=== PATIENT | male | born 1965 | race Caucasian/White ===

== ENCOUNTER → 2020-03-18 10:49 | Outpatient (CLI) | payer OTHER, SELFPAY ==
[2020-03-18 11:36] LABS: Add Manual Diff / Slide Review NO; Basophils Absolute Auto 100 /uL (0-100); Basophils Percent Auto 0.9 % (0-2); Eosinophils Absolute Auto 200 /uL (0-450); Hematocrit 46.6 % (41-53); Hemoglobin 16.3 g/dL (13.5-17.5); Lymphocytes Absolute Auto 2000 /uL (1100-4500); Lymphocytes Percent Auto 36.4 % (25-40); Mean Corpuscular HGB Conc 34.9 % (30-36); Mean Corpuscular Hemoglobin 32.4 PG (26-34); Mean Corpuscular Volume 92.8 fL (80-100); Monocytes Absolute Auto 600 /uL (0-900); Monocytes Percent Auto 10.3 % (3-14); Neutrophils Absolute Auto 2700 /uL (1500-7000); Neutrophils Percent Auto 49.4 % (50-75); Platelet Count 172 X10^3/uL (150-400); Red Blood Cell Count 5.02 X10^6/uL (4.5-5.9); White Blood Cell Count 5.4 X10^3/uL (4.5-11.0)
[2020-03-18 11:56] LABS: Alanine Aminotransferase 57 IU/L (<50); Albumin 4.4 g/dL (3.5-5.0); Albumin Globulin Ratio 1.3 (1.0-2.8); Alkaline Phosphatase 69 U/L (38-126); Aspartate Aminotransferase 40 IU/L (17-59); BUN Creatinine Ratio 21.9 (6-22); Bilirubin Total 0.5 mg/dL (0.2-1.3); Blood Urea Nitrogen 16 mg/dL (9-20); C-Reactive Protein Quant 0.5 mg/dL (<1.0); Calcium 9.1 mg/dL (8.4-10.2); Carbon Dioxide 28 mmol/L (22-32); Chloride 107 mmol/L (98-107); Estimated Glomerular Filt Rate > 60.0 mL/min (>60); Globulin 3.4 g/dL (1.7-4.1); Glucose 106 mg/dL (70-100); HEMOLYSIS < 15 (0-50); Potassium 4.3 mmol/L (3.4-5.1); Sodium 141 mmol/L (137-145); Total Protein 7.8 g/dL (6.3-8.2)
[2020-03-18 12:04] LABS: Erythrocyte Sedimentation Rate 1 MM/HR (0-15)
== END ==
PROVIDERS: PCP Internal Medicine; Referring Provider Internal Medicine; Visit Provider Internal Medicine
DX: R10.11 Right upper quadrant pain (principal)
CPT/HCPCS: 36415; 80053; 85025; 85651; 86140

== ENCOUNTER → 2020-09-17 15:53 | Outpatient (CLI) | payer OTHER, SELFPAY ==
--- NOTE | 2020-09-17 15:55 | DI.RAD.S_ITS ---
PROCEDURE: XR LUMBAR SPINE 2-3V INDICATIONS: back pain TECHNIQUE: 5 views of the lumbar spine were acquired. COMPARISON: None. FINDINGS: Bones: 5 [id number] vertebrae are present. Trace dextrocurvature centered at the L3 level. Trace multilevel retrolisthesis. Multilevel disc degeneration, most notably and moderate to severe at the L5-S1 level. Moderate L4-L5 and L5-S1 facet joint arthropathy. Bilateral hip arthroplasties incompletely visualized.. No vertebral body compression fractures. No suspicious bony lesions. Soft tissues: Overlying bowel gas pattern is normal. No suspicious soft tissue calcifications. IMPRESSION: Multilevel spondylosis. Dictated by: Roland Brunson RR Interpreted: Vincenzo Liu MD on 09/17/2020 at 16:40 Transcribed by: FRANCESCO on 09/17/2020 at 16:41 Approved by: Vincenzo Liu M.D. on 09/18/2020 at 17:11
[2020-09-17 16:29] LABS: Add Manual Diff / Slide Review NO; Basophils Absolute Auto 100 /uL (0-100); Basophils Percent Auto 0.7 % (0-2); Eosinophils Absolute Auto 200 /uL (0-450); Eosinophils Percent Auto 2.5 % (2-4); Hematocrit 45.8 % (41-53); Hemoglobin 16.1 g/dL (13.5-17.5); Lymphocytes Absolute Auto 2000 /uL (1100-4500); Lymphocytes Percent Auto 28.3 % (25-40); Mean Corpuscular Hemoglobin 32.9 PG (26-34); Mean Corpuscular Volume 93.8 fL (80-100); Monocytes Absolute Auto 800 /uL (0-900); Monocytes Percent Auto 10.5 % (3-14); Neutrophils Absolute Auto 4200 /uL (1500-7000); Platelet Count 168 X10^3/uL (150-400); Red Blood Cell Count 4.89 X10^6/uL (4.5-5.9); Red Cell Distribution Width 12.7 % (11.6-14.8); White Blood Cell Count 7.2 X10^3/uL (4.5-11.0)
[2020-09-17 16:44] LABS: Alanine Aminotransferase 56 IU/L (<50); Albumin 4.4 g/dL (3.5-5.0); Albumin Globulin Ratio 1.4 (1.0-2.8); Alkaline Phosphatase 66 U/L (38-126); Aspartate Aminotransferase 40 IU/L (17-59); BUN Creatinine Ratio 17.3 (6-22); Bilirubin Total 0.5 mg/dL (0.2-1.3); Blood Urea Nitrogen 18 mg/dL (9-20); C-Reactive Protein Quant 0.5 mg/dL (<1.0); Calcium 9.9 mg/dL (8.4-10.2); Carbon Dioxide 25 mmol/L (22-32); Chloride 109 mmol/L (98-107); Estimated Glomerular Filt Rate > 60.0 mL/min (>60); Globulin 3.1 g/dL (1.7-4.1); Glucose 99 mg/dL (70-100); HEMOLYSIS < 15 (0-50); Potassium 4.4 mmol/L (3.4-5.1); Sodium 141 mmol/L (137-145); Total Protein 7.5 g/dL (6.3-8.2)
[2020-09-17 17:12] LABS: TSH w/ Reflex to FT4 1.16 uIU/mL (0.47-4.68)
[2020-09-17 17:29] LABS: Erythrocyte Sedimentation Rate 1 MM/HR (0-15)
== END ==
PROVIDERS: PCP Internal Medicine; Referring Provider Internal Medicine; Visit Provider Internal Medicine
DX: G89.29 Other chronic pain (principal); I10 Essential (primary) hypertension; M54.9 Dorsalgia, unspecified; R10.9 Unspecified abdominal pain
CPT/HCPCS: 36415; 72100; 80053; 84443; 85025; 85651; 86140

== ENCOUNTER → 2020-09-23 10:23 | Outpatient (CLI) | payer OTHER, SELFPAY ==
--- NOTE | 2020-09-23 10:25 | DI.CT.S_ITS ---
PROCEDURE: CT ABDOMEN PELVIS W CON INDICATIONS: abdominal pain TECHNIQUE: After the administration of oral and intravenous contrast, axial sections were acquired from the lung bases to the pubic symphysis. Coronal and sagittal reformats were performed. For radiation dose reduction, the following was used: automated exposure control, adjustment of mA and/or kV according to patient size. COMPARISON:None. FINDINGS: Image quality: Excellent. Lung bases: Unremarkable. Heart: No significant findings. ABDOMEN: Liver: At least moderate diffuse hepatic steatosis. No focal liver mass Gallbladder: Unremarkable. Biliary ducts: Unremarkable. Pancreas: Unremarkable. Spleen: Unremarkable. Adrenal Glands: Unremarkable. Kidneys and Ureters: A focal wedge-shaped area of cortical loss in the upper pole of the left kidney is consistent with remote insult, possibly an old focal infarct. Kidneys are otherwise unremarkable. Normal enhancement, no stones, no hydronephrosis. Stomach and Bowel: Mild sigmoid diverticulosis. Otherwise unremarkable. Peritoneal cavity: No free air, free fluid, or abscess cavity. No retroperitoneal adenopathy. PELVIS: Pelvic Organs: Unremarkable. Bladder: Mild diffuse bladder wall thickening, enlarged prostate. Pelvic Nodes: No enlarged lymph nodes. Miscellaneous: No inguinal hernias are seen. Bones: Bilateral total hip arthroplasties. Lumbar degenerative change. IMPRESSION: 1. Diffuse hepatic steatosis. 2. No evidence acute abdominal process. Dictated by: Jossue Gillespie M.D. on 09/23/2020 at 12:12 Approved by: Jossue Gillespie M.D. on 09/23/2020 at 12:17
== END ==
PROVIDERS: PCP Internal Medicine; Referring Provider Internal Medicine; Visit Provider Internal Medicine
DX: R10.9 Unspecified abdominal pain (principal); K76.0 Fatty (change of) liver, not elsewhere classified
CPT/HCPCS: 74177; Q9967

== ENCOUNTER 2020-10-29 09:45 | Outpatient (RCR) | payer OTHER, SELFPAY ==
--- NOTE | 2020-10-14 12:29 | PT.OIE ---
Current Diagnoses Other chronic pain (10/14/20) Low back pain (10/14/20) Past Medical History (Last Reviewed 10/07/20 @ 13:35 by Valerio Hardin MD) Acne (~1979) Chronic back pain (~1999) Essential hypertension Fatty liver Fistula (~2005) H/O basal cell carcinoma excision (~2006) History of pulmonary embolism (~2014) History of rectal surgery Insomnia Plantar warts (~1975) Pulmonary embolism (~2014) Rosacea (~1981) S/P bilateral hip replacements (~2014) S/P excision of ganglion cyst (~2009) Sleep apnea in adult Wears glasses Past Surgical History (Last Reviewed 10/07/20 @ 13:35 by Valerio Hardin MD) Anesthesia H/O basal cell carcinoma excision (~2006) History of rectal surgery S/P bilateral hip replacements (~2014) S/P excision of ganglion cyst (~2009) Visit Care Team Role Provider Type Chris Gaxiola MD Attending Provider Physician Family Provider Primary Care Provider Referring Provider Specialty: Internal Medicine Address: [address] [place] [address], [address], [facility] Email: [email or web address] Physical Therapy Initial Evaluation PT-OP-A Visit Information Start: 10/14/20 12:07 Freq: Status: Active Protocol: Document 10/14/20 12:07 (Rec: 10/14/20 12:29 [email or web address]) Out-Patient Physical Therapy Visit Information Visit Information Visit Type Initial Evaluation Visit Start Time 11:15 Visit Stop Time 12:00 Total Visit Minutes 45 Visit Number Number of EMBEDDED SYSTEMS SOFTWARE ENGINEER Visits 0 Evaluation Information Evaluation Date 10/14/20 Precautions Precautions B NEYDA 2014 told him he cannot run to preserve longevity of prostheses. PT-OP-B Current Condition Start: 10/14/20 12:07 Freq: Status: Active Protocol: Document 10/14/20 12:07 (Rec: 10/14/20 12:29 [email or web address]) Current Condition History of Current Condition Onset Date 15 years ago Current Complaints chronic LBP, difficulty in standing History of Current Condition Antwan is a 55 yo male here for his chronic LBP for over 15 years. His pain located primarily at upper lumbar region and it radiates to the side. His major c/o is stiffness in the morning, and pain after standing for hours for his job working at the [employer] 2-3 days/ week ( 8 hours shift). He also notices lifting and arching his back make it worse as well. Walking , sitting and bending over does not bother him. Pt had B NEYDA in 2014 with good recovery but told him he cannot run to preserve longevity of prostheses. Prior Treatments and Tests X-ray at lumbar spine 09/17 ) IMPRESSION: Multilevel spondylosis Treatment Goals Patient/Caregiver Goals 1. to learn a HEP for pain management. PT-OP-C Subjective Start: 10/14/20 12:07 Freq: Status: Active Protocol: Document 10/14/20 12:07 (Rec: 10/14/20 12:29 [email or web address]) Patient Questionnaires Oswestry Low Back Index Oswestry Score 10 Oswestry Impairment 1 to 19% Impaired (Score 1-19) OP-PT Pain Assessment Location LBP Pain Location Details L1-L2 Intensity 4 Scale Used Numeric (0 - 10) Description Aching,Pressure Frequency Frequent Pain Aggravating Factors Position,ADL's,Activity, Standing,Lifting Pain Alleviating Factors Inactivity,Lying Supine, Position,Sitting PT-OP-F Manual Assessment Start: 10/14/20 12:07 Freq: Status: Active Protocol: Document 10/14/20 12:07 (Rec: 10/14/20 12:29 [email or web address]) Manual Assessments Soft Tissue Assessment Soft Tissue Mobility Assessment hypertonicity at B hip flexors R>L and lumbar paraspinals PT-OP-H Neuro Start: 10/14/20 12:07 Freq: Status: Active Protocol: Document 10/14/20 12:07 HH (Rec: 10/14/20 12:29 [email or web address]) Sensation Evaluation Gross Sensation Gross Sensation WNL Deep Tendon Reflex & Clonus Assessment Deep Tendon Reflex Bilateral Achilles Deep Tendon Reflex 2+ Normal Bilateral Patellar Deep Tendon Reflex 0 Absent PT-OP-J Posture/Palpation/Skin Start: 10/14/20 12:07 Freq: Status: Active Protocol: Document 10/14/20 12:07 HH (Rec: 10/14/20 12:29 [email or web address]) Posture Evaluation Position Standing Pelvis Posture Anteriorly Tilted Hip Posture (L) Externally Rotated,(R) Externally Rotated PT-OP-K Range of Motion Start: 10/14/20 12:07 Freq: Status: Active Protocol: Document 10/14/20 12:07 (Rec: 10/14/20 12:29 [email or web address]) Lumbar Spine Range of Motion Lumbar Spine Active Degrees Comments toe touch test= 4 inches from floor lateral flexion to L/R= 23 inches from floor , angulationg at L1-l2 extension= up to neutral only. angulation at L1-L2 with significant pain and pressure at L1L2 PT-OP-L Special Tests Start: 10/14/20 12:07 Freq: Status: Active Protocol: Document 10/14/20 12:07 (Rec: 10/14/20 12:29 [email or web address]) Special Tests Lumbar Spine Special Tests Zacarias Test Results +VE R>L Comments hip flexor tightness R>L Straight Leg Raise Test Results -ve Comments up to 80 degrees Slump Test Results -ve Prone Instability Test Test Results +VE Vertical Spine Loading Test Results +VE Comments pain decreased with PPT PT-OP-M Strength Start: 10/14/20 12:07 Freq: Status: Active Protocol: Document 10/14/20 12:07 (Rec: 10/14/20 12:29 [email or web address]) Hip Strength Hip Manual Muscle Testing Right Flexion (L2) 4+ Good+ Extension (S1) 4+ Good+ Abduction 4+ Good+ Adduction 4+ Good+ Left Flexion (L2) 4+ Good+ Extension (S1) 4+ Good+ Abduction 4+ Good+ Adduction 4+ Good+ Knee Strength Knee Manual Muscle Testing Right Flexion (S2) 5 Normal Extension (L3) 5 Normal Left Flexion (S2) 5 Normal Extension (L3) 5 Normal Ankle/Foot Strength Ankle and Foot Manual Muscle Testing Right Dorsiflexion (L4) 5 Normal Plantarflexion (S1) 5 Normal Left Dorsiflexion (L4) 5 Normal Plantarflexion (S1) 5 Normal Toe Strength Toe Manual Muscle Testing Right Great Toe Flexion 5 Normal Extension 5 Normal Left Great Toe Flexion 5 Normal Extension 5 Normal PT-OP-Q Treatments Start: 10/14/20 12:07 Freq: Status: Active Protocol: Document 10/14/20 12:07 (Rec: 10/14/20 12:29 [email or web address]) Therapeutic Exercises Sitting Exercises trunk flexion Comments for /HEP, stretching in AM and before sleep Standing Exercises PPT Comments for hep PT-OP-T Assessment and Plan Start: 10/14/20 12:07 Freq: Status: Active Protocol: Document 10/14/20 12:07 (Rec: 10/14/20 12:29 [email or web address]) Physical Therapy Assessment Rehab Potential Rehabilitation Potential Excellent Evaluation Complexity Number of Personal Factors/Comorbidities 1-2 Number of Body Systems Impaired 1-2 Clinical Presentation at Evaluation Stable Impairments Impairments Activity Tolerance,Functional Activities,Functional Mobility ,Gait,Pain,Posture,ROM,Soft Tissue Mobility,Strength, Transfers Goals HEP Impairment pt does not ahve HEP Short Term Goal (STG) pt will be compliant to his daily HEP to improve his postural awareness and core stability STG Duration 4weeks prone instability Impairment pain in prone instability test Short Term Goal (STG) pt will show improved hip flexor flexibility and spinal stability therefore he has no discomfort during prone instability test STG Duration 3 weeks Fdc Goal (LTG) pt will show good understanding to be able engage posterior pelvic tilt without cueing in standing position for pain management LTG Duration 6 weeks activity tolerance Impairment pain 4/10 to stand >1 hour Short Term Goal (STG) pt will improve his postural awareness and core stability to be able to stand >1 hours with pain no more than 2/10 STG Duration 3 weeks Fdc Goal (LTG) pt will improve his postural awareness and core stability to be able to stand >2 hours without pain LTG Duration 6 weeks Assessment Summary Assessment Antwan is a 55yo male here for his chronic LBP >15years. PMH includes B NEYDA 2014. Upon assessment, pt presents signs of lumbar spine OA and hypermobile L1-L2 region. Postive for prone instability and vertical spine loading test. He presents significant anterior pelvic tilt in WB position which mechanically increase spinal stress in extension / WB positions. Pt will benefit from skilled therapy to improve his lumbar spine and core stability and postural awareness therefore he can tolerate standing activities without discomfort. Physical Therapy Plan Frequency and Duration Frequency of Treatment 1-2/ wk Duration of Treatment 6 weeks Plan of Care Start Date 10/14/20 Plan of Care End Date 11/28/20 Therapeutic Interventions Therapeutic Interventions Aquatic Therapy,Balance Training,Gait Training,Home Exercise Program,Joint Mobilizations,Manual Therapy, Neuromuscular Re-education, Patient/Caregiver Education, Self-Care/Home Management,Soft Tissue Mobilization,Taping, Therapeutic Activities, Therapeutic Exercises Modalities Cold Pack/Ice Massage,Electric Stimulation,Hot Packs, Infrared Therapy,Traction- Mechanical,Ultrasound Next Visit Focus/Plan Next Note Type Treatment Note Next Visit Plan check core stability (felxion, ext and lateral flexion) zacarias stretch PPT in supine bridging trunk flexion
--- NOTE | 2020-10-14 12:29 | PT.OPPOC ---
Physical, Occupational & Speech Therapy At [facility] Current Diagnoses Other chronic pain (10/14/20) Low back pain (10/14/20) Visit Care Team Role Provider Type Chris Gaxiola MD Attending Provider Physician Family Provider Primary Care Provider Referring Provider Specialty: Internal Medicine Address: [address] [place] [address], [address], [facility] Email: [email or web address] Plan Of Care PT-OP-T Assessment and Plan Start: 10/14/20 12:07 Freq: Status: Active Protocol: Document 10/14/20 12:07 (Rec: 10/14/20 12:29 [email or web address]) Physical Therapy Assessment Rehab Potential Rehabilitation Potential Excellent Evaluation Complexity Number of Personal Factors/Comorbidities 1-2 Number of Body Systems Impaired 1-2 Clinical Presentation at Evaluation Stable Impairments Impairments Activity Tolerance,Functional Activities,Functional Mobility ,Gait,Pain,Posture,ROM,Soft Tissue Mobility,Strength, Transfers Goals HEP Impairment pt does not ahve HEP Short Term Goal (STG) pt will be compliant to his daily HEP to improve his postural awareness and core stability STG Duration 4weeks prone instability Impairment pain in prone instability test Short Term Goal (STG) pt will show improved hip flexor flexibility and spinal stability therefore he has no discomfort during prone instability test STG Duration 3 weeks Alf Goal (LTG) pt will show good understanding to be able engage posterior pelvic tilt without cueing in standing position for pain management LTG Duration 6 weeks activity tolerance Impairment pain 4/10 to stand >1 hour Short Term Goal (STG) pt will improve his postural awareness and core stability to be able to stand >1 hours with pain no more than 2/10 STG Duration 3 weeks Protocol Manager Goal (LTG) pt will improve his postural awareness and core stability to be able to stand >2 hours without pain LTG Duration 6 weeks Assessment Summary Assessment Antwan is a 55yo male here for his chronic LBP >15years. PMH includes B NEYDA 2014. Upon assessment, pt presents signs of lumbar spine OA and hypermobile L1-L2 region. Postive for prone instability and vertical spine loading test. He presents significant anterior pelvic tilt in WB position which mechanically increase spinal stress in extension / WB positions. Pt will benefit from skilled therapy to improve his lumbar spine and core stability and postural awareness therefore he can tolerate standing activities without discomfort. Physical Therapy Plan Frequency and Duration Frequency of Treatment 1-2/ wk Duration of Treatment 6 weeks Plan of Care Start Date 10/14/20 Plan of Care End Date 11/28/20 Therapeutic Interventions Therapeutic Interventions Aquatic Therapy,Balance Training,Gait Training,Home Exercise Program,Joint Mobilizations,Manual Therapy, Neuromuscular Re-education, Patient/Caregiver Education, Self-Care/Home Management,Soft Tissue Mobilization,Taping, Therapeutic Activities, Therapeutic Exercises Modalities Cold Pack/Ice Massage,Electric Stimulation,Hot Packs, Infrared Therapy,Traction- Mechanical,Ultrasound Next Visit Focus/Plan Next Note Type Treatment Note Next Visit Plan check core stability (felxion, ext and lateral flexion) dacia stretch PPT in supine bridging trunk flexion Plan of Care Dates Plan of Care Start Date 10/14/20 Plan of Care End Date 11/28/20 Electronically Signed by: Du Landaverde PT 10/14/20 [id number] Please Sign and Return: I have reviewed this Plan of Care and certify that the skilled therapy services above are required to meet the patient?s needs. Physician Signature Date Printed Name and Credentials Clinical Instructor Signature Printed Name and Credentials
--- NOTE | 2020-10-16 13:48 | PT.OTN ---
Current Diagnoses Other chronic pain (10/16/20) Low back pain (10/16/20) Physical Therapy Treatment Note PT-OP-A Visit Information Start: 10/14/20 12:07 Freq: Status: Active Protocol: Document 10/16/20 12:46 HH (Rec: 10/16/20 13:48 [id number]) Out-Patient Physical Therapy Visit Information Visit Information Visit Type Treatment Note Visit Start Time 13:00 Visit Stop Time 13:44 Total Visit Minutes 44 Visit Number 272 Number of PERSONAL DEVELOPMENT COACH Visits 0 PT-OP-B Current Condition Start: 10/14/20 12:07 Freq: Status: Active Protocol: Document 10/14/20 12:07 HH (Rec: 10/14/20 12:29 [email or web address]) Current Condition History of Current Condition Onset Date 15 years ago Current Complaints chronic LBP, difficulty in standing History of Current Condition Antwan is a 55 yo male here for his chronic LBP for over 15 years. His pain located primarily at upper lumbar region and it radiates to the side. His major c/o is stiffness in the morning, and pain after standing for hours for his job working at the [employer] 2-3 days/ week ( 8 hours shift). He also notices lifting and arching his back make it worse as well. Walking , sitting and bending over does not bother him. Pt had B NEYDA in 2014 with good recovery but told him he cannot run to preserve longevity of prostheses. Prior Treatments and Tests X-ray at lumbar spine 09/17 ) IMPRESSION: Multilevel spondylosis Treatment Goals Patient/Caregiver Goals 1. to learn a HEP for pain management. PT-OP-C Subjective Start: 10/14/20 12:07 Freq: Status: Active Protocol: Document 10/16/20 12:46 HH (Rec: 10/16/20 13:48 [id number]) OP-PT Subjective Patient Comments Patient Comments I tried to stretch and it feels good. PT-OP-F Manual Assessment Start: 10/14/20 12:07 Freq: Status: Active Protocol: Document 10/14/20 12:07 HH (Rec: 10/14/20 12:29 HH [email or web address]) Manual Assessments Soft Tissue Assessment Soft Tissue Mobility Assessment hypertonicity at B hip flexors R>L and lumbar paraspinals PT-OP-H Neuro Start: 10/14/20 12:07 Freq: Status: Active Protocol: Document 10/14/20 12:07 (Rec: 10/14/20 12:29 [email or web address]) Sensation Evaluation Gross Sensation Gross Sensation WNL Deep Tendon Reflex & Clonus Assessment Deep Tendon Reflex Bilateral Achilles Deep Tendon Reflex 2+ Normal Bilateral Patellar Deep Tendon Reflex 0 Absent PT-OP-J Posture/Palpation/Skin Start: 10/14/20 12:07 Freq: Status: Active Protocol: Document 10/14/20 12:07 (Rec: 10/14/20 12:29 [email or web address]) Posture Evaluation Position Standing Pelvis Posture Anteriorly Tilted Hip Posture (L) Externally Rotated,(R) Externally Rotated PT-OP-K Range of Motion Start: 10/14/20 12:07 Freq: Status: Active Protocol: Document 10/14/20 12:07 (Rec: 10/14/20 12:29 [email or web address]) Lumbar Spine Range of Motion Lumbar Spine Active Degrees Comments toe touch test= 4 inches from floor lateral flexion to L/R= 23 inches from floor , angulationg at L1-l2 extension= up to neutral only. angulation at L1-L2 with significant pain and pressure at L1L2 PT-OP-L Special Tests Start: 10/14/20 12:07 Freq: Status: Active Protocol: Document 10/14/20 12:07 (Rec: 10/14/20 12:29 [email or web address]) Special Tests Lumbar Spine Special Tests Zacarias Test Results +VE R>L Comments hip flexor tightness R>L Straight Leg Raise Test Results -ve Comments up to 80 degrees Slump Test Results -ve Prone Instability Test Test Results +VE Vertical Spine Loading Test Results +VE Comments pain decreased with PPT PT-OP-M Strength Start: 10/14/20 12:07 Freq: Status: Active Protocol: Document 10/14/20 12:07 (Rec: 10/14/20 12:29 [email or web address]) Hip Strength Hip Manual Muscle Testing Right Flexion (L2) 4+ Good+ Extension (S1) 4+ Good+ Abduction 4+ Good+ Adduction 4+ Good+ Left Flexion (L2) 4+ Good+ Extension (S1) 4+ Good+ Abduction 4+ Good+ Adduction 4+ Good+ Knee Strength Knee Manual Muscle Testing Right Flexion (S2) 5 Normal Extension (L3) 5 Normal Left Flexion (S2) 5 Normal Extension (L3) 5 Normal Ankle/Foot Strength Ankle and Foot Manual Muscle Testing Right Dorsiflexion (L4) 5 Normal Plantarflexion (S1) 5 Normal Left Dorsiflexion (L4) 5 Normal Plantarflexion (S1) 5 Normal Toe Strength Toe Manual Muscle Testing Right Great Toe Flexion 5 Normal Extension 5 Normal Left Great Toe Flexion 5 Normal Extension 5 Normal PT-OP-Q Treatments Start: 10/14/20 12:07 Freq: Status: Active Protocol: Document 10/16/20 12:46 (Rec: 10/16/20 13:48 [id number]) Therapeutic Exercises Supine Exercises bridging Supine Exercise Name cues on PPT Side bilateral Reps/Minutes 10 x2 Comments for HEP zacarias stretch Reps/Minutes 20 sec stretchx5 Comments for HEP Sitting Exercises trunk flexion Sitting Exercise Name review Comments for /HEP, stretching in AM and before sleep Standing Exercises standing posture Standing Exercise Name with PPT Comments pt unable to engage PPT, better in seated position PPT Standing Exercise Name review Comments for hep Manual Therapy Treatment Soft Tissue Mobilization paraspinals Body Location bilateral Mobilization Type Sustained Pressure,Trigger Point Release Intensity/Depth Deep Comments R with higher tonicity PT-OP-T Assessment and Plan Start: 10/14/20 12:07 Freq: Status: Active Protocol: Document 10/16/20 12:46 (Rec: 10/16/20 13:48 [id number]) Physical Therapy Assessment Goals HEP Impairment pt does not ahve HEP Short Term Goal (STG) pt will be compliant to his daily HEP to improve his postural awareness and core stability STG Duration 4weeks prone instability Impairment pain in prone instability test Short Term Goal (STG) pt will show improved hip flexor flexibility and spinal stability therefore he has no discomfort during prone instability test STG Duration 3 weeks Data Analyst Report Writer Goal (LTG) pt will show good understanding to be able engage posterior pelvic tilt without cueing in standing position for pain management LTG Duration 6 weeks activity tolerance Impairment pain 4/10 to stand >1 hour Short Term Goal (STG) pt will improve his postural awareness and core stability to be able to stand >1 hours with pain no more than 2/10 STG Duration 3 weeks Fdc Goal (LTG) pt will improve his postural awareness and core stability to be able to stand >2 hours without pain LTG Duration 6 weeks Assessment Summary Assessment noticed pt has higer tonicity at R paraspinals and QL mostly d/t his more limited R hip flexor flexibility. Added zacarias stretch, seated flexion stretch, PPT and bridging for HEP. Will focus on PPT in WB position next visit. Physical Therapy Plan Frequency and Duration Frequency of Treatment 1-2/ wk Duration of Treatment 6 weeks Plan of Care Start Date 10/14/20 Plan of Care End Date 11/28/20 Therapeutic Interventions Therapeutic Interventions Aquatic Therapy,Balance Training,Gait Training,Home Exercise Program,Joint Mobilizations,Manual Therapy, Neuromuscular Re-education, Patient/Caregiver Education, Self-Care/Home Management,Soft Tissue Mobilization,Taping, Therapeutic Activities, Therapeutic Exercises Modalities Cold Pack/Ice Massage,Electric Stimulation,Hot Packs, Infrared Therapy,Traction- Mechanical,Ultrasound Next Visit Focus/Plan Next Note Type Treatment Note Next Visit Plan check core stability (felxion, ext and lateral flexion) zacarias stretch PPT in supine bridging trunk flexion
--- NOTE | 2020-10-22 09:57 | PT.OTN ---
Current Diagnoses Other chronic pain (10/22/20) Low back pain (10/22/20) Physical Therapy Treatment Note PT-OP-A Visit Information Start: 10/14/20 12:07 Freq: Status: Active Protocol: Document 10/22/20 08:55 HH (Rec: 10/22/20 09:57 [id number]) Out-Patient Physical Therapy Visit Information Visit Information Visit Type Treatment Note Visit Start Time 09:02 Visit Stop Time 09:45 Total Visit Minutes 43 Visit Number Number of COFFEE SOMMELIER Visits 0 PT-OP-B Current Condition Start: 10/14/20 12:07 Freq: Status: Active Protocol: Document 10/14/20 12:07 HH (Rec: 10/14/20 12:29 [email or web address]) Current Condition History of Current Condition Onset Date 15 years ago Current Complaints chronic LBP, difficulty in standing History of Current Condition Antwan is a 55 yo male here for his chronic LBP for over 15 years. His pain located primarily at upper lumbar region and it radiates to the side. His major c/o is stiffness in the morning, and pain after standing for hours for his job working at the [employer] 2-3 days/ week ( 8 hours shift). He also notices lifting and arching his back make it worse as well. Walking , sitting and bending over does not bother him. Pt had B NEYDA in 2014 with good recovery but told him he cannot run to preserve longevity of prostheses. Prior Treatments and Tests X-ray at lumbar spine 09/17 ) IMPRESSION: Multilevel spondylosis Treatment Goals Patient/Caregiver Goals 1. to learn a HEP for pain management. PT-OP-C Subjective Start: 10/14/20 12:07 Freq: Status: Active Protocol: Document 10/22/20 08:55 HH (Rec: 10/22/20 09:57 [id number]) OP-PT Subjective Patient Comments Patient Comments [place] been trying to do pelvic tilt at work and it did help. I didnt feel as sore as before . Patient Reported Progress Improving PT-OP-F Manual Assessment Start: 10/14/20 12:07 Freq: Status: Active Protocol: Document 10/14/20 12:07 HH (Rec: 10/14/20 12:29 HH [email or web address]) Manual Assessments Soft Tissue Assessment Soft Tissue Mobility Assessment hypertonicity at B hip flexors R>L and lumbar paraspinals PT-OP-H Neuro Start: 10/14/20 12:07 Freq: Status: Active Protocol: Document 10/14/20 12:07 (Rec: 10/14/20 12:29 [email or web address]) Sensation Evaluation Gross Sensation Gross Sensation WNL Deep Tendon Reflex & Clonus Assessment Deep Tendon Reflex Bilateral Achilles Deep Tendon Reflex 2+ Normal Bilateral Patellar Deep Tendon Reflex 0 Absent PT-OP-J Posture/Palpation/Skin Start: 10/14/20 12:07 Freq: Status: Active Protocol: Document 10/14/20 12:07 (Rec: 10/14/20 12:29 [email or web address]) Posture Evaluation Position Standing Pelvis Posture Anteriorly Tilted Hip Posture (L) Externally Rotated,(R) Externally Rotated PT-OP-K Range of Motion Start: 10/14/20 12:07 Freq: Status: Active Protocol: Document 10/14/20 12:07 (Rec: 10/14/20 12:29 [email or web address]) Lumbar Spine Range of Motion Lumbar Spine Active Degrees Comments toe touch test= 4 inches from floor lateral flexion to L/R= 23 inches from floor , angulationg at L1-l2 extension= up to neutral only. angulation at L1-L2 with significant pain and pressure at L1L2 PT-OP-L Special Tests Start: 10/14/20 12:07 Freq: Status: Active Protocol: Document 10/14/20 12:07 (Rec: 10/14/20 12:29 [email or web address]) Special Tests Lumbar Spine Special Tests Zacarias Test Results +VE R>L Comments hip flexor tightness R>L Straight Leg Raise Test Results -ve Comments up to 80 degrees Slump Test Results -ve Prone Instability Test Test Results +VE Vertical Spine Loading Test Results +VE Comments pain decreased with PPT PT-OP-M Strength Start: 10/14/20 12:07 Freq: Status: Active Protocol: Document 10/14/20 12:07 (Rec: 10/14/20 12:29 [email or web address]) Hip Strength Hip Manual Muscle Testing Right Flexion (L2) 4+ Good+ Extension (S1) 4+ Good+ Abduction 4+ Good+ Adduction 4+ Good+ Left Flexion (L2) 4+ Good+ Extension (S1) 4+ Good+ Abduction 4+ Good+ Adduction 4+ Good+ Knee Strength Knee Manual Muscle Testing Right Flexion (S2) 5 Normal Extension (L3) 5 Normal Left Flexion (S2) 5 Normal Extension (L3) 5 Normal Ankle/Foot Strength Ankle and Foot Manual Muscle Testing Right Dorsiflexion (L4) 5 Normal Plantarflexion (S1) 5 Normal Left Dorsiflexion (L4) 5 Normal Plantarflexion (S1) 5 Normal Toe Strength Toe Manual Muscle Testing Right Great Toe Flexion 5 Normal Extension 5 Normal Left Great Toe Flexion 5 Normal Extension 5 Normal PT-OP-Q Treatments Start: 10/14/20 12:07 Freq: Status: Active Protocol: Document 10/22/20 08:55 (Rec: 10/22/20 09:57 [id number]) Cardio Equipment Bicycle (Upright) Duration (Minutes) 5 Resistance 5 Therapeutic Exercises Supine Exercises leg curl Equipment Used red therapy ball Reps/Minutes 10 x2 Comments cues on PPT LTR Equipment Used red therapy ball Reps/Minutes 10 x2 Comments cues on PPT bridging Supine Exercise Name cues on PPT Side bilateral Reps/Minutes 10 x2 Comments for HEP zacarias stretch Reps/Minutes 20 sec stretchx5 Comments for HEP Prone Exercises birddog Prone Exercise Name unilateral hip extension Equipment Used red therapy ball Reps/Minutes 10 x2 Comments pt has compensation more on R> L through trunk rotation. Standing Exercises PPT Standing Exercise Name review Comments for hep Manual Therapy Treatment Soft Tissue Mobilization paraspinals Body Location bilateral Mobilization Type Sustained Pressure,Trigger Point Release Intensity/Depth Deep Comments R with higher tonicity PT-OP-T Assessment and Plan Start: 10/14/20 12:07 Freq: Status: Active Protocol: Document 10/22/20 08:55 (Rec: 10/22/20 09:57 [id number]) Physical Therapy Assessment Rehab Potential Rehabilitation Potential Excellent Evaluation Complexity Number of Personal Factors/Comorbidities 1-2 Number of Body Systems Impaired 1-2 Clinical Presentation at Evaluation Stable Impairments Impairments Activity Tolerance,Functional Activities,Functional Mobility ,Gait,Pain,Posture,ROM,Soft Tissue Mobility,Strength, Transfers Goals HEP Impairment pt does not ahve HEP Short Term Goal (STG) pt will be compliant to his daily HEP to improve his postural awareness and core stability STG Duration 4weeks prone instability Impairment pain in prone instability test Short Term Goal (STG) pt will show improved hip flexor flexibility and spinal stability therefore he has no discomfort during prone instability test STG Duration 3 weeks Senior Care Goal (LTG) pt will show good understanding to be able engage posterior pelvic tilt without cueing in standing position for pain management LTG Duration 6 weeks activity tolerance Impairment pain 4/10 to stand >1 hour Short Term Goal (STG) pt will improve his postural awareness and core stability to be able to stand >1 hours with pain no more than 2/10 STG Duration 3 weeks Senior Care Goal (LTG) pt will improve his postural awareness and core stability to be able to stand >2 hours without pain LTG Duration 6 weeks Assessment Summary Assessment pt reports doing PPT tends to alleviate his symptoms at work which is helpful. He progressed to abdominal stabilization ex with LTR, leg curl,and birddog. Pt magy session with good engagement of PPT. Physical Therapy Plan Frequency and Duration Frequency of Treatment 1-2/ wk Duration of Treatment 6 weeks Plan of Care Start Date 10/14/20 Plan of Care End Date 11/28/20 Therapeutic Interventions Therapeutic Interventions Aquatic Therapy,Balance Training,Gait Training,Home Exercise Program,Joint Mobilizations,Manual Therapy, Neuromuscular Re-education, Patient/Caregiver Education, Self-Care/Home Management,Soft Tissue Mobilization,Taping, Therapeutic Activities, Therapeutic Exercises Modalities Cold Pack/Ice Massage,Electric Stimulation,Hot Packs, Infrared Therapy,Traction- Mechanical,Ultrasound Next Visit Focus/Plan Next Note Type Treatment Note Next Visit Plan check core stability (felxion, ext and lateral flexion) zacarias stretch PPT in supine bridging trunk flexion
--- NOTE | 2020-10-24 09:05 | PT.OTN ---
Current Diagnoses Other chronic pain (10/24/20) Low back pain (10/24/20) Physical Therapy Treatment Note PT-OP-A Visit Information Start: 10/14/20 12:07 Freq: Status: Active Protocol: Document 10/24/20 08:18 HH (Rec: 10/24/20 09:05 [id number]) Out-Patient Physical Therapy Visit Information Visit Information Visit Type Treatment Note Visit Start Time 08:17 Visit Stop Time 09:00 Total Visit Minutes 43 Visit Number 4/72 Number of PLASTICS TOOLING ENGINEER Visits 0 PT-OP-B Current Condition Start: 10/14/20 12:07 Freq: Status: Active Protocol: Document 10/14/20 12:07 HH (Rec: 10/14/20 12:29 [email or web address]) Current Condition History of Current Condition Onset Date 15 years ago Current Complaints chronic LBP, difficulty in standing History of Current Condition Antwan is a 55 yo male here for his chronic LBP for over 15 years. His pain located primarily at upper lumbar region and it radiates to the side. His major c/o is stiffness in the morning, and pain after standing for hours for his job working at the [employer] 2-3 days/ week ( 8 hours shift). He also notices lifting and arching his back make it worse as well. Walking , sitting and bending over does not bother him. Pt had B NEYDA in 2014 with good recovery but told him he cannot run to preserve longevity of prostheses. Prior Treatments and Tests X-ray at lumbar spine 09/17 ) IMPRESSION: Multilevel spondylosis Treatment Goals Patient/Caregiver Goals 1. to learn a HEP for pain management. PT-OP-C Subjective Start: 10/14/20 12:07 Freq: Status: Active Protocol: Document 10/24/20 08:18 HH (Rec: 10/24/20 09:05 [id number]) OP-PT Subjective Patient Comments Patient Comments I got a little sore from last time but i recovered. Im going to work the whole weekend so will see. Patient Reported Progress Improving PT-OP-F Manual Assessment Start: 10/14/20 12:07 Freq: Status: Active Protocol: Document 10/14/20 12:07 HH (Rec: 10/14/20 12:29 [email or web address]) Manual Assessments Soft Tissue Assessment Soft Tissue Mobility Assessment hypertonicity at B hip flexors R>L and lumbar paraspinals PT-OP-H Neuro Start: 10/14/20 12:07 Freq: Status: Active Protocol: Document 10/14/20 12:07 (Rec: 10/14/20 12:29 [email or web address]) Sensation Evaluation Gross Sensation Gross Sensation WNL Deep Tendon Reflex & Clonus Assessment Deep Tendon Reflex Bilateral Achilles Deep Tendon Reflex 2+ Normal Bilateral Patellar Deep Tendon Reflex 0 Absent PT-OP-J Posture/Palpation/Skin Start: 10/14/20 12:07 Freq: Status: Active Protocol: Document 10/14/20 12:07 (Rec: 10/14/20 12:29 [email or web address]) Posture Evaluation Position Standing Pelvis Posture Anteriorly Tilted Hip Posture (L) Externally Rotated,(R) Externally Rotated PT-OP-K Range of Motion Start: 10/14/20 12:07 Freq: Status: Active Protocol: Document 10/14/20 12:07 (Rec: 10/14/20 12:29 [email or web address]) Lumbar Spine Range of Motion Lumbar Spine Active Degrees Comments toe touch test= 4 inches from floor lateral flexion to L/R= 23 inches from floor , angulationg at L1-l2 extension= up to neutral only. angulation at L1-L2 with significant pain and pressure at L1L2 PT-OP-L Special Tests Start: 10/14/20 12:07 Freq: Status: Active Protocol: Document 10/14/20 12:07 (Rec: 10/14/20 12:29 [email or web address]) Special Tests Lumbar Spine Special Tests Zacarias Test Results +VE R>L Comments hip flexor tightness R>L Straight Leg Raise Test Results -ve Comments up to 80 degrees Slump Test Results -ve Prone Instability Test Test Results +VE Vertical Spine Loading Test Results +VE Comments pain decreased with PPT PT-OP-M Strength Start: 10/14/20 12:07 Freq: Status: Active Protocol: Document 10/14/20 12:07 (Rec: 10/14/20 12:29 [email or web address]) Hip Strength Hip Manual Muscle Testing Right Flexion (L2) 4+ Good+ Extension (S1) 4+ Good+ Abduction 4+ Good+ Adduction 4+ Good+ Left Flexion (L2) 4+ Good+ Extension (S1) 4+ Good+ Abduction 4+ Good+ Adduction 4+ Good+ Knee Strength Knee Manual Muscle Testing Right Flexion (S2) 5 Normal Extension (L3) 5 Normal Left Flexion (S2) 5 Normal Extension (L3) 5 Normal Ankle/Foot Strength Ankle and Foot Manual Muscle Testing Right Dorsiflexion (L4) 5 Normal Plantarflexion (S1) 5 Normal Left Dorsiflexion (L4) 5 Normal Plantarflexion (S1) 5 Normal Toe Strength Toe Manual Muscle Testing Right Great Toe Flexion 5 Normal Extension 5 Normal Left Great Toe Flexion 5 Normal Extension 5 Normal PT-OP-Q Treatments Start: 10/14/20 12:07 Freq: Status: Active Protocol: Document 10/24/20 08:18 (Rec: 10/24/20 09:05 [id number]) Cardio Equipment Bicycle (Upright) Duration (Minutes) 5 Resistance 5 Therapeutic Exercises Supine Exercises leg curl Equipment Used red therapy ball Reps/Minutes 10 x2 LTR Equipment Used red therapy ball Reps/Minutes 10 x2 bridging Supine Exercise Name cues on PPT Side bilateral Reps/Minutes 10 x2 zacarias stretch Reps/Minutes 20 sec stretchx5 Prone Exercises birddog Prone Exercise Name elbows on table, LE on floor unilateral hip extension Equipment Used red therapy ball Reps/Minutes 10 x2 Comments pt has compensation more on R> L through trunk rotation. Manual Therapy Treatment Soft Tissue Mobilization paraspinals Body Location bilateral Mobilization Type Sustained Pressure,Trigger Point Release Intensity/Depth Deep Comments R with higher tonicity PT-OP-T Assessment and Plan Start: 10/14/20 12:07 Freq: Status: Active Protocol: Document 10/24/20 08:18 (Rec: 10/24/20 09:05 [id number]) Physical Therapy Assessment Goals HEP Impairment pt does not ahve HEP Short Term Goal (STG) pt will be compliant to his daily HEP to improve his postural awareness and core stability STG Duration 4weeks prone instability Impairment pain in prone instability test Short Term Goal (STG) pt will show improved hip flexor flexibility and spinal stability therefore he has no discomfort during prone instability test STG Duration 3 weeks Spot Checker Goal (LTG) pt will show good understanding to be able engage posterior pelvic tilt without cueing in standing position for pain management LTG Duration 6 weeks activity tolerance Impairment pain 4/10 to stand >1 hour Short Term Goal (STG) pt will improve his postural awareness and core stability to be able to stand >1 hours with pain no more than 2/10 STG Duration 3 weeks Alf Goal (LTG) pt will improve his postural awareness and core stability to be able to stand >2 hours without pain LTG Duration 6 weeks Assessment Summary Assessment pt magy session well with core stabilization therex and hip extension mobility and strengthening ex. Will reassess his tolerance for his work this weekend. Physical Therapy Plan Frequency and Duration Frequency of Treatment 1-2/ wk Duration of Treatment 6 weeks Plan of Care Start Date 10/14/20 Plan of Care End Date 11/28/20 Therapeutic Interventions Therapeutic Interventions Aquatic Therapy,Balance Training,Gait Training,Home Exercise Program,Joint Mobilizations,Manual Therapy, Neuromuscular Re-education, Patient/Caregiver Education, Self-Care/Home Management,Soft Tissue Mobilization,Taping, Therapeutic Activities, Therapeutic Exercises Modalities Cold Pack/Ice Massage,Electric Stimulation,Hot Packs, Infrared Therapy,Traction- Mechanical,Ultrasound Next Visit Focus/Plan Next Note Type Treatment Note Next Visit Plan check core stability (felxion, ext and lateral flexion) zacarias stretch PPT in supine bridging trunk flexion
--- NOTE | 2020-10-29 10:37 | PT.OTN ---
Current Diagnoses Other chronic pain (10/29/20) Low back pain (10/29/20) Physical Therapy Treatment Note PT-OP-A Visit Information Start: 10/14/20 12:07 Freq: Status: Active Protocol: Document 10/29/20 09:03 (Rec: 10/29/20 10:36 [id number]) Out-Patient Physical Therapy Visit Information Visit Information Visit Type Treatment Note Visit Start Time 09:47 Visit Stop Time 10:30 Total Visit Minutes 43 Visit Number Number of SHIPPING SUPERVISOR Visits 0 PT-OP-B Current Condition Start: 10/14/20 12:07 Freq: Status: Active Protocol: Document 10/14/20 12:07 HH (Rec: 10/14/20 12:29 [email or web address]) Current Condition History of Current Condition Onset Date 15 years ago Current Complaints chronic LBP, difficulty in standing History of Current Condition Antwan is a 55 yo male here for his chronic LBP for over 15 years. His pain located primarily at upper lumbar region and it radiates to the side. His major c/o is stiffness in the morning, and pain after standing for hours for his job working at the [employer] 2-3 days/ week ( 8 hours shift). He also notices lifting and arching his back make it worse as well. Walking , sitting and bending over does not bother him. Pt had B NEYDA in 2014 with good recovery but told him he cannot run to preserve longevity of prostheses. Prior Treatments and Tests X-ray at lumbar spine 09/17 ) IMPRESSION: Multilevel spondylosis Treatment Goals Patient/Caregiver Goals 1. to learn a HEP for pain management. PT-OP-C Subjective Start: 10/14/20 12:07 Freq: Status: Active Protocol: Document 10/29/20 09:03 (Rec: 10/29/20 10:36 [id number]) OP-PT Subjective Patient Comments Patient Comments My routine is pretty helpful in the morning to reduce my stiffness. I understand the concept of how to help myself now. Patient Reported Progress Improving PT-OP-F Manual Assessment Start: 10/14/20 12:07 Freq: Status: Active Protocol: Document 10/14/20 12:07 HH (Rec: 10/14/20 12:29 [email or web address]) Manual Assessments Soft Tissue Assessment Soft Tissue Mobility Assessment hypertonicity at B hip flexors R>L and lumbar paraspinals PT-OP-H Neuro Start: 10/14/20 12:07 Freq: Status: Active Protocol: Document 10/14/20 12:07 (Rec: 10/14/20 12:29 [email or web address]) Sensation Evaluation Gross Sensation Gross Sensation WNL Deep Tendon Reflex & Clonus Assessment Deep Tendon Reflex Bilateral Achilles Deep Tendon Reflex 2+ Normal Bilateral Patellar Deep Tendon Reflex 0 Absent PT-OP-J Posture/Palpation/Skin Start: 10/14/20 12:07 Freq: Status: Active Protocol: Document 10/14/20 12:07 (Rec: 10/14/20 12:29 [email or web address]) Posture Evaluation Position Standing Pelvis Posture Anteriorly Tilted Hip Posture (L) Externally Rotated,(R) Externally Rotated PT-OP-K Range of Motion Start: 10/14/20 12:07 Freq: Status: Active Protocol: Document 10/14/20 12:07 (Rec: 10/14/20 12:29 [email or web address]) Lumbar Spine Range of Motion Lumbar Spine Active Degrees Comments toe touch test= 4 inches from floor lateral flexion to L/R= 23 inches from floor , angulationg at L1-l2 extension= up to neutral only. angulation at L1-L2 with significant pain and pressure at L1L2 PT-OP-L Special Tests Start: 10/14/20 12:07 Freq: Status: Active Protocol: Document 10/14/20 12:07 (Rec: 10/14/20 12:29 [email or web address]) Special Tests Lumbar Spine Special Tests Zacarias Test Results +VE R>L Comments hip flexor tightness R>L Straight Leg Raise Test Results -ve Comments up to 80 degrees Slump Test Results -ve Prone Instability Test Test Results +VE Vertical Spine Loading Test Results +VE Comments pain decreased with PPT PT-OP-M Strength Start: 10/14/20 12:07 Freq: Status: Active Protocol: Document 10/14/20 12:07 (Rec: 10/14/20 12:29 [email or web address]) Hip Strength Hip Manual Muscle Testing Right Flexion (L2) 4+ Good+ Extension (S1) 4+ Good+ Abduction 4+ Good+ Adduction 4+ Good+ Left Flexion (L2) 4+ Good+ Extension (S1) 4+ Good+ Abduction 4+ Good+ Adduction 4+ Good+ Knee Strength Knee Manual Muscle Testing Right Flexion (S2) 5 Normal Extension (L3) 5 Normal Left Flexion (S2) 5 Normal Extension (L3) 5 Normal Ankle/Foot Strength Ankle and Foot Manual Muscle Testing Right Dorsiflexion (L4) 5 Normal Plantarflexion (S1) 5 Normal Left Dorsiflexion (L4) 5 Normal Plantarflexion (S1) 5 Normal Toe Strength Toe Manual Muscle Testing Right Great Toe Flexion 5 Normal Extension 5 Normal Left Great Toe Flexion 5 Normal Extension 5 Normal PT-OP-Q Treatments Start: 10/14/20 12:07 Freq: Status: Active Protocol: Document 10/29/20 09:03 (Rec: 10/29/20 10:36 [id number]) Cardio Equipment Bicycle (Upright) Duration (Minutes) 5 Resistance 5 Therapeutic Exercises Supine Exercises piriformis stretch Side right Reps/Minutes 10 s x 5 Comments significant tightness noted. leg curl Equipment Used red therapy ball Reps/Minutes 10 x2 LTR Equipment Used red therapy ball Reps/Minutes 10 x2 bridging Supine Exercise Name cues on PPT Side bilateral Reps/Minutes 10 x2 zacarias stretch Reps/Minutes 20 sec stretchx5 Standing Exercises hip flexor stretch Side bilateral Reps/Minutes 15 s x5 PT-OP-T Assessment and Plan Start: 10/14/20 12:07 Freq: Status: Active Protocol: Document 10/29/20 09:03 (Rec: 10/29/20 10:36 [id number]) Physical Therapy Assessment Goals HEP Impairment pt does not ahve HEP Short Term Goal (STG) pt will be compliant to his daily HEP to improve his postural awareness and core stability STG Duration 4weeks prone instability Impairment pain in prone instability test Short Term Goal (STG) pt will show improved hip flexor flexibility and spinal stability therefore he has no discomfort during prone instability test STG Duration 3 weeks Coding Technician Goal (LTG) pt will show good understanding to be able engage posterior pelvic tilt without cueing in standing position for pain management LTG Duration 6 weeks activity tolerance Impairment pain 4/10 to stand >1 hour Short Term Goal (STG) pt will improve his postural awareness and core stability to be able to stand >1 hours with pain no more than 2/10 STG Duration 3 weeks Coding Technician Goal (LTG) pt will improve his postural awareness and core stability to be able to stand >2 hours without pain LTG Duration 6 weeks Assessment Summary Assessment pt overall is progressing well who understands how to manage her pain and stiffness effectively. Consolidated his HEP and added piriformis stretch and standing hip flexor stretch. Change his POC to every other week until end november for f/u. Physical Therapy Plan Frequency and Duration Frequency of Treatment Every Other Week Duration of Treatment 6 weeks Plan of Care Start Date 10/14/20 Plan of Care End Date 11/28/20 Therapeutic Interventions Therapeutic Interventions Aquatic Therapy,Balance Training,Gait Training,Home Exercise Program,Joint Mobilizations,Manual Therapy, Neuromuscular Re-education, Patient/Caregiver Education, Self-Care/Home Management,Soft Tissue Mobilization,Taping, Therapeutic Activities, Therapeutic Exercises Modalities Cold Pack/Ice Massage,Electric Stimulation,Hot Packs, Infrared Therapy,Traction- Mechanical,Ultrasound Next Visit Focus/Plan Next Note Type Treatment Note Next Visit Plan check core stability (felxion, ext and lateral flexion) zacarias stretch PPT in supine bridging trunk flexion
--- NOTE | 2020-11-21 08:38 | PT.OPDS ---
Current Diagnoses Other chronic pain (10/29/20) Low back pain (10/29/20) Visit Care Team Role Provider Type Chris Gaxiola MD Attending Provider Physician Family Provider Primary Care Provider Referring Provider Specialty: Internal Medicine Address: [address] [place] [address], [address], [address] Email: [email or web address] Visit Number Visit Number Discharge Summary PT-OP-T Assessment and Plan Start: 10/14/20 12:07 Freq: Status: Active Protocol: Document 11/21/20 08:37 HH (Rec: 11/21/20 08:38 [email or web address]) Physical Therapy Plan Discharge Physical Therapy Discharge Reasons Goals Met Discharge Comments called pt today and he stated his back doing very well without much stiffness. He is able to tolerate longer WB activities. he agrees to DC from therapy at this point.
== END 2020-12-03 10:22 ==
LOC: PHYS 09:45
PROVIDERS: Family Provider Internal Medicine; PCP Internal Medicine; Referring Provider Internal Medicine; Visit Provider Internal Medicine
DX: M54.5 Low back pain (principal); G89.29 Other chronic pain
CPT/HCPCS: 97110; 97140; 97161

== ENCOUNTER → 2021-10-28 07:32 | Outpatient (CLI) | payer OTHER, SELFPAY ==
[2021-10-28 08:50] LABS: Alanine Aminotransferase 101 IU/L (<50); Albumin 4.1 g/dL (3.5-5.0); Albumin Globulin Ratio 1.3 (1.0-2.8); Alkaline Phosphatase 65 U/L (38-126); Aspartate Aminotransferase 61 IU/L (17-59); BUN Creatinine Ratio 16.5 (6-22); Bilirubin Total 0.8 mg/dL (0.2-1.3); Blood Urea Nitrogen 14 mg/dL (9-20); Calcium 8.7 mg/dL (8.4-10.2); Carbon Dioxide 23 mmol/L (22-32); Chloride 107 mmol/L (98-107); Cholesterol 267 mg/dL (140-199); Estimated Glomerular Filt Rate > 60 mL/min (>60); Globulin 3.2 g/dL (1.7-4.1); Glucose 122 mg/dL (70-100); HDL Cholesterol 47 mg/dL (40-60); HEMOLYSIS < 15 (0-50); LDL Cholesterol Calculated 177 mg/dL (<100); Potassium 3.9 mmol/L (3.4-5.1); Sodium 140 mmol/L (137-145); Total Protein 7.3 g/dL (6.3-8.2); Triglycerides 213 mg/dL (35-150)
[2021-10-28 09:16] LABS: TSH w/ Reflex to FT4 2.05 uIU/mL (0.47-4.68)
[2021-10-28 09:18] LABS: Prostate Specific Antigen Scrn 1.17 ng/mL (0.1-4.0)
== END ==
PROVIDERS: Family Provider Internal Medicine; PCP Internal Medicine; Referring Provider Internal Medicine; Visit Provider Internal Medicine
DX: I10 Essential (primary) hypertension (principal); K76.0 Fatty (change of) liver, not elsewhere classified; Z13.6 Encounter for screening for cardiovascular disorders; Z12.5 Encounter for screening for malignant neoplasm of prostate
CPT/HCPCS: 36415; 80053; 80061; 84443; G0103